=== PATIENT | female | born 1985 | race Two or more races ===

== ENCOUNTER 2016-12-18 20:28 | Emergency (ER) | payer OTHER ==
[2016-12-18] MEDS ORDERED: MAALOX/LIDO2%VISC/SIMETHICONE 40 ML BOT ONE (21:27)
[2016-12-18 22:47] LABS: HCG,QUALITATIVE URINE NEGATIVE
--- NOTE | 2016-12-19 07:35 | RAD ---
History: Chest pain. Comparison: None. Technique: 2 views Findings: The soft tissue and bony structures are unremarkable. The heart size is appropriate. No infiltrate, effusion or pneumothorax is observed. The hilar and mediastinal structures are normal. Impression: 1. A negative 2 view chest
== END 2016-12-18 22:59 | disposition home or self-care (01) ==
LOC: ED 20:28
DX: R07.9 Chest pain, unspecified (principal); N64.4 Mastodynia
CPT/HCPCS: 81025; 71020; 99283 ×2; 93005; A9270